=== PATIENT | female | born 1995 | race Caucasian/White ===

== ENCOUNTER 2017-11-12 15:23 | Emergency (ER) | payer BC ==
--- NOTE | 2017-11-12 19:03 | EDM.PDOC ---
ED HPI GENERAL MEDICAL PROBLEM - General Chief Complaint: General Stated Complaint: LIGH HEADED AND DIZZY Time Seen by Provider: 11/12/17 18:14 Source of Information: Reports: Patient, Family, RN Notes Reviewed History Limitations: Reports: No Limitations - History of Present Illness INITIAL COMMENTS - FREE TEXT/NARRATIVE: 22-year-old female presents emergency department today complaint of dizziness she has had dizziness for about 6 weeks it is intermittent nature and seems to be positional she has been evaluated by her primary care including CBC CMP and thyroid all of which were normal she was on 3 medications methylphenidate, minocycline and control the first 2 medications do list dizziness as a side effect. She stop the methylphenidate about 3 weeks ago with no change in the dizziness. She denies any other symptoms other than headache or head fullness when the dizziness calms and the feeling of fatigue after each event Headache Pain Score (Numeric/FACES): 2 - Related Data Allergies Allergy/AdvReac Type Severity Reaction Status Date / Time No Known Allergies Allergy Verified 11/12/17 16:40 Home Meds: Home Meds Desogestrel-Ethinyl Estradiol [Reclipsen 28 Day Tablet] 1 tab PO DAILY 11/12/17 [History] Fexofenadine/Pseudoephedrine [Emily-D 24 Hour Tablet] 1 tab PO DAILY 11/12/17 [History] Methylphenidate HCl [Methylphenidate ER] 1 tab PO BID 11/12/17 [History] Past Medical History HEENT History: Reports: Impaired Vision Neurological History: Reports: Concussion Psychiatric History: Reports: ADHD Dermatologic History: Reports: Other (See Below) Other Dermatologic History: redness face and chest Social & Family History - Tobacco Use Smoking Status *Q: Never Smoker Second Hand Smoke Exposure: No - Caffeine Use Caffeine Use: Reports: None - Alcohol Use Days Per Week of Alcohol Use: 0 - Recreational Drug Use Recreational Drug Use: No ED ROS GENERAL - Review of Systems Review Of Systems: See Below Constitutional: Reports: Fatigue HEENT: Reports: No Symptoms Respiratory: Reports: No Symptoms Cardiovascular: Reports: No Symptoms GI/Abdominal: Reports: No Symptoms : Reports: No Symptoms Musculoskeletal: Reports: No Symptoms Skin: Reports: No Symptoms Neurological: Reports: Dizziness, Headache ED EXAM, GENERAL - Physical Exam Exam: See Below Free Text/Narrative:: General: Female, not in any distress, alert and oriented x3 HEENT: head is atraumatic normocephalic, eyes pupils equal round reactive to light, sclera clear no conjunctivitis appreciated. Ears tympanic membranes clear and cartwright landmarks and light reflex are present bilaterally canals are clear. Nose no septal deviation, nares are clear, no blood present. Mouth mucosa is moist and pink no erythema or exudate noted in soft palate, tongue is midline uvula is midline, dentition is intact. Neck: Supple no thyromegaly no tracheal deviation. Nodes: Cervical nodes subclavicular nodes nontender no palpable lymphadenopathy noted. Lungs: clear to auscultation bilaterally with symmetrical respirations, no adventitious noise appreciated. CV: Regular rate and rhythm S1 and S2 appreciated no murmurs rubs or gallops noted. Abdomen: Soft, nontender, no palpable masses or organomegaly appreciated, no distention no guarding bowel sounds are present, . Neuro: Cranial nerves II through XII grossly intact, power is 5 out 5 in upper and lower extremities, can do finger to nose without difficulty no dysdiadochokinesis no difficulty with rapid alternating movements can do heel-to -gallo without difficulty Romberg is negative, has adequate gait can do heel to toe, can toe walk and heel walk no cerebellar dysfunction no focal neurologic deficit Skin: Warm and dry, intact Extremities: No lower extremity edema appreciated, Course - Vital Signs Last Recorded V/S: Last Vital Signs Temp 98.6 F 11/12/17 16:51 Pulse 115 H 11/12/17 16:51 Resp 20 11/12/17 16:51 BP 139/98 H 11/12/17 16:51 Pulse Ox 98 11/12/17 16:51 Departure - Departure Time of Disposition: 19:02 Disposition: Home, Self-Care 01 Condition: Fair Clinical Impression: Dizziness - Discharge Information Referrals: Olga Geller PA [Primary Care Provider] - Additional Instructions: Stop her minocycline, follow-up with your primary care on Wednesday for further evaluation, keep a dizzy journal, call return to the emergency department worsening of symptoms - Assessment/Plan Plan: Assessment Acuity = acute Site and laterality = dizziness positional Etiology = unclear etiology Manifestations = none Location of injury = Home Lab values = none Plan Discussed options as well as further image studies and lab work declined at this time plan is to stop the minocycline for evaluation contact primary care on Wednesday and consider MRI for further evaluation and workup if dizziness persists as well as a dizzy journal This note was dictated using [employer] voice recognition software please call with any questions on syntax or galina.
== END 2017-11-12 19:10 | disposition home or self-care (01) ==
LOC: JP.ED 15:23
DX: R42 Dizziness and giddiness (principal); Z79.899 Other long term (current) drug therapy
CPT/HCPCS: 99284